=== PATIENT | female | born 1955 | race African-American/Black ===

== ENCOUNTER 2020-10-07 04:39 | Inpatient (IN) | payer OTHER, MEDICARE ==
[~2020-10-07] VITALS: Ht 165.1 cm; Wt 97.5 kg
[2020-10-07] MEDS ORDERED: SODIUM CHLORIDE 0.9% 1,000 ML IV ONE (05:30)
[2020-10-07 05:32] LABS: HEMATOCRIT. 43.5 % (36.0-48.0); HEMOGLOBIN. 14.2 g/dL (12.0-16.0); MEAN CORPUSCULAR HEMOGLOBIN 25.8 pg (28.0-32.0); MEAN PLATELET VOLUME 8.9 fl (7.4-10.4); PLATELET 271 x1000/uL (130-400); RED BLOOD CELL COUNT 5.51 mill/uL (4.2-5.4); RED CELL DISTRIBUTION WIDTH 16.5 % (11.6-14.6)
[2020-10-07 05:38] LABS: CHLORIDE 101 mEq/L (98-107)
[2020-10-07 06:15] LABS: BG BASE EXCESS 2.7 mmol/L (-2.0-2.0); BG CARBOXYHEMOGLOBIN 0.9 % (0.5-1.5); BG DEOXYHEMOGLOBIN 10.3 % (0.0-5.0); BG FRACTION INSPIRED OXYGEN 32; BG HCO3 ACT 26.7 mmol/L (22.0-26.0); BG METHEMOGLOBIN 0.1 % (0.0-1.5); BG OXYGEN SATURATION 89.6 % (92.0-98.5); BG OXYHEMOGLOBIN 88.7 % (94.0-97.0); BG PH 7.453 (7.350-7.450); BG PO2 56.3 mmHg (75.0-100.0); BG SAMPLE SITE RIGHT RADIAL; BG TOTAL HEMOGLOBIN 14.5 g/dL (12.0-18.0); BG VENT MODE NASAL CANNULA
[2020-10-07 06:19] LABS: PLATELET ESTIMATE NORMAL
[2020-10-07] MEDS ORDERED: PIPERACILLIN/TAZ 3.375G PREMIX 50 ML IV ONE (06:45)
[2020-10-07] MEDS ORDERED: VANCOMYCIN 1 G PREMIX 200 ML IV ONE (06:45)
[2020-10-07] MEDS ORDERED: DEXAMETHASONE 10 MG/ML VIAL IV ONE (06:45)
[2020-10-07 07:59] LABS: D-DIMER 4.55 mg/L FEU (<0.50)
[2020-10-07] MEDS ORDERED: MAGNESIUM/ALUMINUM HYDROXIDE/SIMETHICONE 30ML UDC PO PRN (08:45)
[2020-10-07] MEDS ORDERED: ENOXAPARIN 40MG/0.4ML SYR SUBCUT SCH ×2 (08:45→21:00)
[2020-10-07] MEDS ORDERED: ZOLPIDEM TARTRATE 5MG TABLET PO PRN (08:45)
[2020-10-07] MEDS ORDERED: NA PHOS,M-B/NA PHOS,DI-BA ENEMA 118ML PR PRN (08:45)
[2020-10-07] MEDS ORDERED: ACETAMINOPHEN 325MG TABLET PO PRN (08:45)
[2020-10-07] MEDS ORDERED: ONDANSETRON HCL 4MG/2ML INJ IV PRN (08:45)
[2020-10-07] MEDS ORDERED: DEXTROSE 50% WATER 50ML SYRINGE IV PRN (08:45)
[2020-10-07] MEDS ORDERED: ALBUTEROL 6.7GM HFA INHALER ORI PRN (08:45)
[2020-10-07] MEDS ORDERED: DOCUSATE SODIUM 100MG CAPSULE PO PRN (08:45)
[2020-10-07] MEDS ORDERED: TRAMADOL 50MG TABLET PO PRN (08:45)
[2020-10-07] MEDS ORDERED: NITROGLYCERIN 0.4MG TABLET SL SL PRN (08:45)
[2020-10-07] MEDS ORDERED: GUAIFENESIN 200MG/10ML SUGAR FREE UDC PO PRN (08:45)
[2020-10-07 09:00] VITALS: BP 121/79
[2020-10-07] MEDS ORDERED: ALBUTEROL 6.7GM HFA INHALER ORI SCH ×2 (09:00→10:00)
[2020-10-07] MEDS: BLOOD SUGAR DIAGNOSTIC STRIP TEST SCH ×4 (09:00→22:14)
[2020-10-07] MEDS ORDERED: CEFTRIAXONE 1 G PREMIX 50 ML IV SCH (09:00)
[2020-10-07 09:28] LABS: FOLIC ACID (FOLATE) SERUM 13.5 ng/mL (>5.38)
[2020-10-07] MEDS ORDERED: AZITHROMYCIN 500 MG in DEXT 5% WATER 250 ML IV SCH (10:00)
[2020-10-07] MEDS ORDERED: INSULIN GLARGINE UD 100 UNITS/ML SYR SUBCUT SCH ×2 (10:15→11:00)
[2020-10-07] MEDS ORDERED: CEFTRIAXONE 1,000 MG in DEXTROSE 5% WATER 50 ML IV SCH (10:15)
[2020-10-07] MEDS: ENOXAPARIN 30MG/0.3ML SYR SUBCUT SCH ×2 (10:18→22:13)
[2020-10-07] MEDS: FAMOTIDINE 20MG TABLET PO SCH ×2 (10:18→22:13)
[2020-10-07] MEDS: ZINC SULFATE 220 MG ( 50 ) CAPSULE PO SCH (10:18)
[2020-10-07] MEDS: ASPIRIN 81MG EC TABLET PO SCH (10:18)
[2020-10-07] MEDS: ASCORBIC ACID 500 MG TABLET PO SCH ×2 (10:19→22:13)
[2020-10-07 12:00] VITALS: BP 143/81
[2020-10-07] MEDS: CEFTRIAXONE 1,000 MG in DEXTROSE 5% WATER 50 ML IV SCH (12:05)
[2020-10-07] MEDS: AZITHROMYCIN 500 MG in DEXT 5% WATER 250 ML IV SCH (12:50)
[2020-10-07] MEDS: INSULIN LISPRO 100 UNITS/ML SUBCUT SCH ×3 (13:14→22:15)
[2020-10-07] MEDS ORDERED: INFLUENZA VACCINE 05/PF 0.5 ML VIAL IM ONE (13:30)
[2020-10-07 15:12] LABS: CREATINE KINASE 98 IU/L (26-192)
[2020-10-07 15:13] LABS: CREATINE KINASE MB FRACTION < 1.0 ng/mL (0.5-3.6)
[2020-10-07 16:00] VITALS: BP 138/89
[2020-10-07 20:00] VITALS: BP 159/90
[2020-10-07] MEDS: INSULIN GLARGINE UD 100 UNITS/ML SYR SUBCUT SCH (22:15)
[2020-10-07 23:53] LABS: CREATINE KINASE 102 IU/L (26-192)
[2020-10-07 23:54] LABS: CREATINE KINASE MB FRACTION < 1.0 ng/mL (0.5-3.6)
[2020-10-08] VITALS: BP 150/93
[2020-10-08 04:00] VITALS: BP 106/73
[2020-10-08] MEDS ORDERED: IPRATROPIUM/ALBUTEROL 0.5-3(2.5)MG/3ML NEB HHN SCH (06:00)
[2020-10-08] MEDS: BLOOD SUGAR DIAGNOSTIC STRIP TEST SCH ×4 (06:11→21:00)
[2020-10-08 08:00] VITALS: BP 131/74
[2020-10-08] MEDS: ZINC SULFATE 220 MG ( 50 ) CAPSULE PO SCH (08:29)
[2020-10-08] MEDS: FAMOTIDINE 20MG TABLET PO SCH ×2 (08:29→22:02)
[2020-10-08] MEDS: ENOXAPARIN 30MG/0.3ML SYR SUBCUT SCH ×2 (08:29→22:04)
[2020-10-08] MEDS: ASCORBIC ACID 500 MG TABLET PO SCH ×2 (08:29→22:02)
[2020-10-08] MEDS: ASPIRIN 81MG EC TABLET PO SCH (08:29)
[2020-10-08] MEDS: DEXAMETHASONE 10 MG/ML VIAL IV SCH (08:30)
[2020-10-08] MEDS: INSULIN LISPRO 100 UNITS/ML SUBCUT SCH ×4 (08:31→22:03)
[2020-10-08] MEDS: CEFTRIAXONE 1,000 MG in DEXTROSE 5% WATER 50 ML IV SCH (11:24)
[2020-10-08 12:00] VITALS: BP 144/80
[2020-10-08] MEDS: AZITHROMYCIN 500 MG in DEXT 5% WATER 250 ML IV SCH (13:04)
[2020-10-08 16:00] VITALS: BP 149/85
[2020-10-08] MEDS ORDERED: IOHEXOL-350 100 ML BOTTLE ONE (18:13)
[2020-10-08 20:00] VITALS: BP 138/86
[2020-10-08] MEDS: INSULIN GLARGINE UD 100 UNITS/ML SYR SUBCUT SCH (22:05)
[2020-10-09] VITALS (9 sets, daily range): BP systolic 136–154; BP diastolic 70–91
[2020-10-09 01:52] LABS: *AMPHETAMINES SCREEN URINE NEGATIVE (NEGATIVE); *BARBITURATES SCREEN URINE NEGATIVE (NEGATIVE); *BENZODIAZEPINES SCREEN URINE NEGATIVE (NEGATIVE); *COCAINE SCREEN URINE NEGATIVE (NEGATIVE)
[2020-10-09 01:53] LABS: CANNABINOID URINE SCREEN NEGATIVE (NEGATIVE); METHADONE URINE SCREEN NEGATIVE (NEGATIVE); OPIATES URINE SCREEN NEGATIVE (NEGATIVE); PHENCYCLIDINE URINE SCREEN NEGATIVE (NEGATIVE)
[2020-10-09] MEDS: BLOOD SUGAR DIAGNOSTIC STRIP TEST SCH ×4 (06:56→20:19)
[2020-10-09] MEDS: INSULIN LISPRO 100 UNITS/ML SUBCUT SCH ×4 (07:10→20:45)
[2020-10-09 07:26] LABS: HEMATOCRIT. 37.7 % (36.0-48.0); HEMOGLOBIN. 12.4 g/dL (12.0-16.0); MEAN CORPUSCULAR HEMOGLOBIN 26.3 pg (28.0-32.0); MEAN CORPUSCULAR VOLUME 79.6 fL (81.0-99.0); MEAN PLATELET VOLUME 8.3 fl (7.4-10.4); PLATELET 347 x1000/uL (130-400); RED BLOOD CELL COUNT 4.73 mill/uL (4.2-5.4)
[2020-10-09 07:28] LABS: CHLORIDE 106 mEq/L (98-107)
[2020-10-09] MEDS ORDERED: BUTALBITAL/ACETAMINOPHEN/CAFFEINE 50/325/40MG TABLET PO PRN (09:15)
[2020-10-09] MEDS: DEXAMETHASONE 10 MG/ML VIAL IV SCH (09:26)
[2020-10-09] MEDS: FAMOTIDINE 20MG TABLET PO SCH ×2 (09:26→20:19)
[2020-10-09] MEDS: ENOXAPARIN 30MG/0.3ML SYR SUBCUT SCH ×2 (09:26→20:19)
[2020-10-09] MEDS: ZINC SULFATE 220 MG ( 50 ) CAPSULE PO SCH (09:26)
[2020-10-09] MEDS: ASCORBIC ACID 500 MG TABLET PO SCH ×2 (09:26→20:19)
[2020-10-09] MEDS: ASPIRIN 81MG EC TABLET PO SCH (09:26)
[2020-10-09] MEDS ORDERED: IPRATROPIUM/ALBUTEROL 0.5-3(2.5)MG/3ML NEB HHN PRN (12:00)
[2020-10-09] MEDS: CEFTRIAXONE 1,000 MG in DEXTROSE 5% WATER 50 ML IV SCH (12:20)
[2020-10-09 12:27] LABS: BG BASE EXCESS 1.2 mmol/L (-2.0-2.0); BG CARBOXYHEMOGLOBIN 1.8 % (0.5-1.5); BG DEOXYHEMOGLOBIN 1.9 % (0.0-5.0); BG FRACTION INSPIRED OXYGEN 92.6; BG HCO3 ACT 23.6 mmol/L (22.0-26.0); BG METHEMOGLOBIN 0.2 % (0.0-1.5); BG OXYGEN SATURATION 98.1 % (92.0-98.5); BG OXYHEMOGLOBIN 96.1 % (94.0-97.0); BG PCO2 31.8 mmHg (35.0-45.0); BG PH 7.488 (7.350-7.450); BG PO2 99.3 mmHg (75.0-100.0); BG SAMPLE SITE RIGHT BRACHIAL; BG VENT MODE HIGH FLOW
[2020-10-09] MEDS: AZITHROMYCIN 500 MG in DEXT 5% WATER 250 ML IV SCH (13:18)
[2020-10-09 14:38] LABS: PLATELET ESTIMATE NORMAL
[2020-10-09] MEDS: IPRATROPIUM/ALBUTEROL 0.5-3(2.5)MG/3ML NEB HHN SCH ×2 (18:35→20:01)
[2020-10-09] MEDS: INSULIN GLARGINE UD 100 UNITS/ML SYR SUBCUT SCH (21:47)
[2020-10-10] VITALS (12 sets, daily range): BP systolic 136–163; BP diastolic 72–89
[2020-10-10] MEDS: IPRATROPIUM/ALBUTEROL 0.5-3(2.5)MG/3ML NEB HHN SCH ×3 (01:28→20:12)
[2020-10-10 06:41] LABS: HEMATOCRIT. 35.3 % (36.0-48.0); HEMOGLOBIN. 11.7 g/dL (12.0-16.0); MEAN CORPUSCULAR HEMOGLOBIN 26.2 pg (28.0-32.0); MEAN CORPUSCULAR VOLUME 79.2 fL (81.0-99.0); PLATELET 329 x1000/uL (130-400); RED BLOOD CELL COUNT 4.46 mill/uL (4.2-5.4); RED CELL DISTRIBUTION WIDTH 17.4 % (11.6-14.6)
[2020-10-10] MEDS: BLOOD SUGAR DIAGNOSTIC STRIP TEST SCH ×4 (07:30→21:00)
[2020-10-10] MEDS: INSULIN LISPRO 100 UNITS/ML SUBCUT SCH ×4 (08:00→21:00)
[2020-10-10] MEDS: FAMOTIDINE 20MG TABLET PO SCH ×2 (08:45→21:04)
[2020-10-10] MEDS: ASCORBIC ACID 500 MG TABLET PO SCH ×2 (08:45→21:04)
[2020-10-10] MEDS: ASPIRIN 81MG EC TABLET PO SCH (08:45)
[2020-10-10] MEDS: ZINC SULFATE 220 MG ( 50 ) CAPSULE PO SCH (08:45)
[2020-10-10] MEDS: ENOXAPARIN 30MG/0.3ML SYR SUBCUT SCH ×2 (08:46→21:04)
[2020-10-10] MEDS: ACETAMINOPHEN 325MG TABLET PO PRN ×2 (09:02→17:00)
[2020-10-10] MEDS: CEFTRIAXONE 1,000 MG in DEXTROSE 5% WATER 50 ML IV SCH (10:21)
[2020-10-10] MEDS: AZITHROMYCIN 500 MG in DEXT 5% WATER 250 ML IV SCH (11:23)
[2020-10-10 13:31] LABS: PLATELET ESTIMATE NORMAL
[2020-10-10] MEDS: CLONIDINE 0.1MG TABLET PO PRN (16:55)
[2020-10-10] MEDS: INSULIN GLARGINE UD 100 UNITS/ML SYR SUBCUT SCH (21:19)
[2020-10-11] VITALS (12 sets, daily range): BP systolic 126–192; BP diastolic 60–91
[2020-10-11] MEDS ORDERED: METF-414 MT (01:24)
[2020-10-11] MEDS ORDERED: AMLO5TAB88 MT (01:24)
[2020-10-11] MEDS: IPRATROPIUM/ALBUTEROL 0.5-3(2.5)MG/3ML NEB HHN SCH ×4 (01:52→21:30)
[2020-10-11] MEDS: CLONIDINE 0.1MG TABLET PO PRN (02:41)
[2020-10-11 06:17] LABS: HEMATOCRIT. 37.4 % (36.0-48.0); HEMOGLOBIN. 12.5 g/dL (12.0-16.0); MEAN CORPUSCULAR HEMOGLOBIN 26.2 pg (28.0-32.0); MEAN CORPUSCULAR VOLUME 78.5 fL (81.0-99.0); MEAN PLATELET VOLUME 7.9 fl (7.4-10.4); PLATELET 337 x1000/uL (130-400); RED BLOOD CELL COUNT 4.77 mill/uL (4.2-5.4); RED CELL DISTRIBUTION WIDTH 16.5 % (11.6-14.6)
[2020-10-11 06:37] LABS: CHLORIDE 103 mEq/L (98-107)
[2020-10-11] MEDS: INSULIN LISPRO 100 UNITS/ML SUBCUT SCH ×4 (08:00→22:19)
[2020-10-11] MEDS: ZINC SULFATE 220 MG ( 50 ) CAPSULE PO SCH (08:03)
[2020-10-11] MEDS: ASCORBIC ACID 500 MG TABLET PO SCH ×2 (08:03→22:21)
[2020-10-11] MEDS: FAMOTIDINE 20MG TABLET PO SCH ×2 (08:03→22:20)
[2020-10-11] MEDS: ASPIRIN 81MG EC TABLET PO SCH (08:03)
[2020-10-11] MEDS: ENOXAPARIN 30MG/0.3ML SYR SUBCUT SCH ×2 (08:04→22:20)
[2020-10-11] MEDS: BLOOD SUGAR DIAGNOSTIC STRIP TEST SCH ×4 (08:04→22:20)
[2020-10-11] MEDS: AMLODIPINE 10MG TABLET PO SCH (10:04)
[2020-10-11] MEDS: CEFTRIAXONE 1,000 MG in DEXTROSE 5% WATER 50 ML IV SCH (10:38)
[2020-10-11] MEDS: AZITHROMYCIN 500 MG in DEXT 5% WATER 250 ML IV SCH (11:45)
[2020-10-11] MEDS: INSULIN GLARGINE UD 100 UNITS/ML SYR SUBCUT SCH (22:20)
[2020-10-12] VITALS (11 sets, daily range): BP systolic 112–168; BP diastolic 58–94
[2020-10-12] MEDS: IPRATROPIUM/ALBUTEROL 0.5-3(2.5)MG/3ML NEB HHN SCH ×6 (01:16→21:15)
[2020-10-12] MEDS: BLOOD SUGAR DIAGNOSTIC STRIP TEST SCH ×4 (06:39→21:00)
[2020-10-12] MEDS: INSULIN LISPRO 100 UNITS/ML SUBCUT SCH ×4 (08:00→22:33)
[2020-10-12] MEDS: AMLODIPINE 10MG TABLET PO SCH (08:39)
[2020-10-12] MEDS: FAMOTIDINE 20MG TABLET PO SCH ×2 (08:39→22:29)
[2020-10-12] MEDS: ASPIRIN 81MG EC TABLET PO SCH (08:39)
[2020-10-12] MEDS: ZINC SULFATE 220 MG ( 50 ) CAPSULE PO SCH (08:39)
[2020-10-12] MEDS: ASCORBIC ACID 500 MG TABLET PO SCH ×2 (08:39→22:29)
[2020-10-12] MEDS: ENOXAPARIN 30MG/0.3ML SYR SUBCUT SCH ×2 (08:40→22:29)
[2020-10-12 08:41] LABS: BG BASE EXCESS 2.6 mmol/L (-2.0-2.0); BG CARBOXYHEMOGLOBIN 0.8 % (0.5-1.5); BG DEOXYHEMOGLOBIN 13.3 % (0.0-5.0); BG FRACTION INSPIRED OXYGEN 21; BG HCO3 ACT 25.9 mmol/L (22.0-26.0); BG OXYGEN SATURATION 86.6 % (92.0-98.5); BG OXYHEMOGLOBIN 85.9 % (94.0-97.0); BG PCO2 35.8 mmHg (35.0-45.0); BG PH 7.477 (7.350-7.450); BG PO2 49.2 mmHg (75.0-100.0); BG SAMPLE SITE RIGHT RADIAL; BG TOTAL HEMOGLOBIN 13.2 g/dL (12.0-18.0); BG VENT MODE ROOM AIR
[2020-10-12] MEDS: CEFTRIAXONE 1,000 MG in DEXTROSE 5% WATER 50 ML IV SCH (11:13)
[2020-10-12 11:46] LABS: PLATELET ESTIMATE NORMAL
[2020-10-12] MEDS: INSULIN GLARGINE UD 100 UNITS/ML SYR SUBCUT SCH (22:32)
[2020-10-13] VITALS (7 sets, daily range): BP systolic 103–150; BP diastolic 53–78
[2020-10-13] MEDS: IPRATROPIUM/ALBUTEROL 0.5-3(2.5)MG/3ML NEB HHN SCH ×6 (00:55→20:28)
[2020-10-13 06:46] LABS: HEMATOCRIT. 35.6 % (36.0-48.0); HEMOGLOBIN. 11.8 g/dL (12.0-16.0); MEAN CORPUSCULAR HEMOGLOBIN 26.4 pg (28.0-32.0); MEAN CORPUSCULAR VOLUME 79.4 fL (81.0-99.0); MEAN PLATELET VOLUME 7.7 fl (7.4-10.4); PLATELET 322 x1000/uL (130-400); RED BLOOD CELL COUNT 4.48 mill/uL (4.2-5.4); RED CELL DISTRIBUTION WIDTH 17.1 % (11.6-14.6)
[2020-10-13] MEDS: BLOOD SUGAR DIAGNOSTIC STRIP TEST SCH ×4 (07:30→20:47)
[2020-10-13 07:47] LABS: CHLORIDE 106 mEq/L (98-107)
[2020-10-13] MEDS: INSULIN LISPRO 100 UNITS/ML SUBCUT SCH ×4 (08:00→20:59)
[2020-10-13] MEDS: AMLODIPINE 10MG TABLET PO SCH (09:59)
[2020-10-13] MEDS: ENOXAPARIN 30MG/0.3ML SYR SUBCUT SCH ×2 (10:01→20:47)
[2020-10-13] MEDS: ASCORBIC ACID 500 MG TABLET PO SCH ×2 (10:01→20:46)
[2020-10-13] MEDS: ZINC SULFATE 220 MG ( 50 ) CAPSULE PO SCH (10:01)
[2020-10-13] MEDS: FAMOTIDINE 20MG TABLET PO SCH ×2 (10:01→20:46)
[2020-10-13] MEDS: ASPIRIN 81MG EC TABLET PO SCH (10:01)
[2020-10-13] MEDS: CEFTRIAXONE 1,000 MG in DEXTROSE 5% WATER 50 ML IV SCH (11:13)
[2020-10-13] MEDS: CLONIDINE 0.1MG TABLET PO PRN (17:48)
[2020-10-13 19:50] LABS: PLATELET ESTIMATE NORMAL
[2020-10-13] MEDS: INSULIN GLARGINE UD 100 UNITS/ML SYR SUBCUT SCH (22:52)
[2020-10-14] VITALS: BP 128/74
[2020-10-14] MEDS: IPRATROPIUM/ALBUTEROL 0.5-3(2.5)MG/3ML NEB HHN SCH ×5 (00:09→20:28)
[2020-10-14 04:00] VITALS: BP 110/56
[2020-10-14] MEDS: BLOOD SUGAR DIAGNOSTIC STRIP TEST SCH ×4 (07:40→20:41)
[2020-10-14] MEDS: INSULIN LISPRO 100 UNITS/ML SUBCUT SCH ×4 (07:40→20:41)
[2020-10-14 08:00] VITALS: BP 112/36
[2020-10-14] MEDS: ZINC SULFATE 220 MG ( 50 ) CAPSULE PO SCH (08:52)
[2020-10-14] MEDS: ASPIRIN 81MG EC TABLET PO SCH (08:52)
[2020-10-14] MEDS: FAMOTIDINE 20MG TABLET PO SCH ×2 (08:52→20:33)
[2020-10-14] MEDS: ASCORBIC ACID 500 MG TABLET PO SCH ×2 (08:52→20:33)
[2020-10-14] MEDS: AMLODIPINE 10MG TABLET PO SCH (08:52)
[2020-10-14] MEDS: ENOXAPARIN 30MG/0.3ML SYR SUBCUT SCH ×2 (08:52→20:33)
[2020-10-14 17:05] VITALS: BP 159/71
[2020-10-14 20:00] VITALS: BP 136/70
[2020-10-14] MEDS: INSULIN GLARGINE UD 100 UNITS/ML SYR SUBCUT SCH (21:42)
[2020-10-15] VITALS: BP 146/71
[2020-10-15] MEDS: IPRATROPIUM/ALBUTEROL 0.5-3(2.5)MG/3ML NEB HHN SCH ×6 (00:15→20:38)
[2020-10-15 04:00] VITALS: BP 126/57
[2020-10-15] MEDS: BLOOD SUGAR DIAGNOSTIC STRIP TEST SCH ×4 (07:30→20:33)
[2020-10-15 08:00] VITALS: BP 158/75
[2020-10-15] MEDS: INSULIN LISPRO 100 UNITS/ML SUBCUT SCH ×4 (08:00→20:55)
[2020-10-15] MEDS: FAMOTIDINE 20MG TABLET PO SCH ×2 (08:58→20:32)
[2020-10-15] MEDS: ZINC SULFATE 220 MG ( 50 ) CAPSULE PO SCH (08:58)
[2020-10-15] MEDS: ASPIRIN 81MG EC TABLET PO SCH (08:58)
[2020-10-15] MEDS: ASCORBIC ACID 500 MG TABLET PO SCH ×2 (08:59→20:32)
[2020-10-15] MEDS: AMLODIPINE 10MG TABLET PO SCH (08:59)
[2020-10-15] MEDS: ENOXAPARIN 30MG/0.3ML SYR SUBCUT SCH ×2 (09:00→20:33)
[2020-10-15 16:00] VITALS: BP 125/63
[2020-10-15] MEDS: ACETAMINOPHEN 325MG TABLET PO PRN (17:36)
[2020-10-15 20:00] VITALS: BP 136/73
[2020-10-15] MEDS: INSULIN GLARGINE UD 100 UNITS/ML SYR SUBCUT SCH (21:13)
[2020-10-15 23:30] VITALS: BP 125/54
[2020-10-16] MEDS: IPRATROPIUM/ALBUTEROL 0.5-3(2.5)MG/3ML NEB HHN SCH ×4 (00:23→11:42)
[2020-10-16 04:00] VITALS: BP 142/80
[2020-10-16 05:30] VITALS: BP 142/80
[2020-10-16 06:38] LABS: HEMATOCRIT. 35.3 % (36.0-48.0); HEMOGLOBIN. 11.7 g/dL (12.0-16.0); MEAN CORPUSCULAR HEMOGLOBIN 26.3 pg (28.0-32.0); MEAN CORPUSCULAR VOLUME 79.3 fL (81.0-99.0); PLATELET 357 x1000/uL (130-400); RED BLOOD CELL COUNT 4.45 mill/uL (4.2-5.4); RED CELL DISTRIBUTION WIDTH 16.8 % (11.6-14.6)
[2020-10-16] MEDS: BLOOD SUGAR DIAGNOSTIC STRIP TEST SCH (07:30)
[2020-10-16] MEDS: INSULIN LISPRO 100 UNITS/ML SUBCUT SCH (08:00)
[2020-10-16 08:06] VITALS: BP 170/63
[2020-10-16] MEDS: ENOXAPARIN 30MG/0.3ML SYR SUBCUT SCH (08:59)
[2020-10-16] MEDS: ASPIRIN 81MG EC TABLET PO SCH (09:00)
[2020-10-16] MEDS: ZINC SULFATE 220 MG ( 50 ) CAPSULE PO SCH (09:00)
[2020-10-16] MEDS: FAMOTIDINE 20MG TABLET PO SCH (09:00)
[2020-10-16] MEDS: ASCORBIC ACID 500 MG TABLET PO SCH (09:03)
[2020-10-16] MEDS: AMLODIPINE 10MG TABLET PO SCH (09:03)
[2020-10-16 10:21] VITALS: BP 137/64
[2020-10-16 12:00] VITALS: BP 143/68
[2020-10-16 14:43] LABS: PLATELET ESTIMATE NORMAL
== END 2020-10-16 12:38 | disposition home or self-care (01) | DRG 871 ==
LOC: ER 04:39 → 7EST 07:31 → EDBEDREQ 07:35 → EDBEDREQTM 07:35 → ENRESERV 07:51 → SUPCPDRO 08:40 → 8WST 10-08 00:51 → 7EST 10-08 10:40 → 5EST 10-09 11:15
PROVIDERS: ADMIT Internal Medicine; ATTEND Internal Medicine
PROC: 5A0935A Assistance with Respiratory Ventilation, Less than 24 Consecutive Hours, High Flow/Velocity Cannula (ICD-10-PCS; principal; 2020-10-07)
PROC: 5A0935A Assistance with Respiratory Ventilation, Less than 24 Consecutive Hours, High Flow/Velocity Cannula (ICD-10-PCS; 2020-10-08)
PROC: 5A0935A Assistance with Respiratory Ventilation, Less than 24 Consecutive Hours, High Flow/Velocity Cannula (ICD-10-PCS; 2020-10-09)
DX: A41.89 Other specified sepsis (principal); J18.9 Pneumonia, unspecified organism; J96.01 Acute respiratory failure with hypoxia; E44.0 Moderate protein-calorie malnutrition; E66.9 Obesity, unspecified; I10 Essential (primary) hypertension; E11.9 Type 2 diabetes mellitus without complications; Z20.828 Contact with and (suspected) exposure to other viral communicable diseases; T38.0X5A Adverse effect of glucocorticoids and synthetic analogues, initial encounter; I27.20 Pulmonary hypertension, unspecified; Y92.89 Other specified places as the place of occurrence of the external cause; Z68.35 Body mass index [BMI] 35.0-35.9, adult; Z79.4 Long term (current) use of insulin; Z88.0 Allergy status to penicillin; Z79.899 Other long term (current) drug therapy; Z79.82 Long term (current) use of aspirin; Z79.51 Long term (current) use of inhaled steroids; Z79.1 Long term (current) use of non-steroidal anti-inflammatories (NSAID)
CPT/HCPCS: 36415; 36600; 71045; 71275; 80048; 80053; 80061; 80305; 82375; 82550; 82553; 82607; 82728; 82746; 82805; 82962; 83036; 83540; 83550; 83605; 83615; 83880; 84145; 84484; 85025; 85379; 85384; 86140; 87070; 87635; 90686; 93005; 93306; 93970; 94640; 94667; 97116; 97161; 97164; 97166; 97530; 97535; 99291; J0456; J0696; J1100; J1650; J1815; J2543; J3370; J7030; J7060; Q9967; U0003

== ENCOUNTER 2020-10-29 17:44 | Inpatient (IN) | payer OTHER, MEDICARE ==
[~2020-10-29] VITALS: Ht 162.6 cm; Wt 69.9 kg
[~2020-10-29 17:44] MED LIST: AMLO5TAB88 MT; METF-414 MT
[2020-10-29] MEDS ORDERED: LEVOFLOXACIN 750MG PREMIX 150 ML IV ONE (18:15)
[2020-10-29] MEDS ORDERED: AZITHROMYCIN 500 MG in DEXT 5% WATER 250 ML IV ONE (18:15)
[2020-10-29] MEDS ORDERED: SODIUM CHLORIDE 0.9% 1000ML BAG (SEPSIS BOLUS) IV ONE (18:15)
[2020-10-29 20:00] LABS: BASOPHILS % 0.8 % (0.0-2.0); EOSINOPHILS % 5.6 % (0.0-5.0); HEMATOCRIT. 34.8 % (36.0-48.0); HEMOGLOBIN. 11.9 g/dL (12.0-16.0); LYMPHOCYTES % 13.3 % (20.0-50.0); MEAN CORPUSCULAR HEMOGLOBIN 26.1 pg (28.0-32.0); MEAN PLATELET VOLUME 8.3 fl (7.4-10.4); MONOCYTES % 7.2 % (2.0-8.0); NEUTROPHILS % 73.1 % (40.0-76.0); PLATELET 210 x1000/uL (130-400); RED BLOOD CELL COUNT 4.58 mill/uL (4.2-5.4); RED CELL DISTRIBUTION WIDTH 16.7 % (11.6-14.6)
[2020-10-29 20:08] LABS: CHLORIDE 106 mEq/L (98-107); INR 1.2; PROTHROMBIN TIME 12.4 sec (9.6-11.0)
[2020-10-29] MEDS ORDERED: IOHEXOL-350 100 ML BOTTLE ONE (23:16)
[2020-10-30 01:03] LABS: CLARITY URINE CLEAR (CLEAR); COLOR URINE YELLOW (YELLOW); KETONES URINE TRACE (NEGATIVE); LEUKOCYTE ESTERASE URINE NEGATIVE (NEGATIVE); NITRITE URINE NEGATIVE (NEGATIVE); OCCULT BLOOD URINE NEGATIVE (NEGATIVE); PROTEIN URINE 2+ (NEGATIVE); SPECIFIC GRAVITY URINE 1.043 (1.005-1.030)
[2020-10-30] MEDS ORDERED: LEVOFLOXACIN 500MG PREMIX 100 ML IV SCH (01:45)
[2020-10-30] MEDS ORDERED: MAGNESIUM/ALUMINUM HYDROXIDE/SIMETHICONE 30ML UDC PO PRN (01:45)
[2020-10-30] MEDS ORDERED: GUAIFENESIN 200MG/10ML SUGAR FREE UDC PO PRN (01:45)
[2020-10-30] MEDS ORDERED: IPRATROPIUM/ALBUTEROL 0.5-3(2.5)MG/3ML NEB NEB PRN (01:45)
[2020-10-30] MEDS ORDERED: DOCUSATE SODIUM 100MG CAPSULE PO PRN (01:45)
[2020-10-30] MEDS ORDERED: CLONIDINE 0.1MG TABLET PO PRN (01:45)
[2020-10-30] MEDS ORDERED: ONDANSETRON HCL 4MG/2ML INJ IV PRN (01:45)
[2020-10-30] MEDS: ENOXAPARIN 40MG/0.4ML SYR SUBCUT SCH (09:00)
[2020-10-30] MEDS: AMLODIPINE 10MG TABLET PO SCH (09:00)
[2020-10-30] MEDS: ACETAMINOPHEN 325MG TABLET PO PRN ×2 (16:17→19:02)
[2020-10-30] MEDS: BLOOD SUGAR DIAGNOSTIC STRIP TEST SCH ×2 (17:00→21:00)
[2020-10-30] MEDS ORDERED: ALBUTEROL 6.7GM HFA INHALER ORI PRN (17:00)
[2020-10-30] MEDS ORDERED: DEXAMETHASONE 4MG/ML 1ML VIAL IV SCH (18:00)
[2020-10-30] MEDS: LEVOFLOXACIN 250MG PREMIX 50 ML IV SCH (20:44)
[2020-10-31 04:25] LABS: BASOPHILS % 0.5 % (0.0-2.0); EOSINOPHILS % 0.9 % (0.0-5.0); HEMATOCRIT. 36.8 % (36.0-48.0); HEMOGLOBIN. 12.3 g/dL (12.0-16.0); LYMPHOCYTES % 12.5 % (20.0-50.0); MEAN CORPUSCULAR HEMOGLOBIN 25.8 pg (28.0-32.0); MEAN CORPUSCULAR VOLUME 77.3 fL (81.0-99.0); MEAN PLATELET VOLUME 8.2 fl (7.4-10.4); MONOCYTES % 3.5 % (2.0-8.0); NEUTROPHILS % 82.6 % (40.0-76.0); PLATELET 210 x1000/uL (130-400); RED BLOOD CELL COUNT 4.76 mill/uL (4.2-5.4); RED CELL DISTRIBUTION WIDTH 17.2 % (11.6-14.6)
[2020-10-31 04:38] LABS: CHLORIDE 113 mEq/L (98-107)
[2020-10-31] MEDS: BLOOD SUGAR DIAGNOSTIC STRIP TEST SCH ×4 (06:20→21:00)
[2020-10-31] MEDS: ACETAMINOPHEN 325MG TABLET PO PRN ×2 (11:28→21:41)
[2020-10-31 12:30] VITALS: BP 125/63
[2020-10-31] MEDS: AMLODIPINE 10MG TABLET PO SCH (13:48)
[2020-10-31] MEDS: ENOXAPARIN 40MG/0.4ML SYR SUBCUT SCH (13:49)
[2020-10-31] MEDS: DEXAMETHASONE 10 MG/ML VIAL IV SCH (13:50)
[2020-10-31 16:00] VITALS: BP 124/79
[2020-10-31 16:49] VITALS: BP 125/63
[2020-10-31] MEDS ORDERED: ATOR10TA69 MT (17:30)
[2020-10-31 20:00] VITALS: BP 147/82
[2020-10-31] MEDS ORDERED: DEXTROSE 50% WATER 50ML SYRINGE IV PRN (21:00)
[2020-10-31] MEDS: LEVOFLOXACIN 250MG PREMIX 50 ML IV SCH (21:36)
[2020-10-31] MEDS: INSULIN LISPRO 100 UNITS/ML SUBCUT SCH (21:40)
[2020-11-01] VITALS: BP 106/67
[2020-11-01 04:00] VITALS: BP 130/64
[2020-11-01] MEDS: BLOOD SUGAR DIAGNOSTIC STRIP TEST SCH ×4 (07:40→21:01)
[2020-11-01 10:00] VITALS: BP 120/70
[2020-11-01] MEDS: ENOXAPARIN 40MG/0.4ML SYR SUBCUT SCH (10:53)
[2020-11-01] MEDS: DEXAMETHASONE 10 MG/ML VIAL IV SCH (10:53)
[2020-11-01] MEDS: AMLODIPINE 10MG TABLET PO SCH (10:53)
[2020-11-01] MEDS: INSULIN LISPRO 100 UNITS/ML SUBCUT SCH ×4 (10:54→21:20)
[2020-11-01] MEDS: ACETAMINOPHEN 325MG TABLET PO PRN (10:55)
[2020-11-01 16:00] VITALS: BP 127/70
[2020-11-01 20:00] VITALS: BP 116/72
[2020-11-01] MEDS: LEVOFLOXACIN 250MG PREMIX 50 ML IV SCH (21:20)
[2020-11-02] VITALS: BP 139/86
[2020-11-02 04:00] VITALS: BP 172/90
[2020-11-02] MEDS: ACETAMINOPHEN 325MG TABLET PO PRN ×3 (04:55→16:17)
[2020-11-02] MEDS: BLOOD SUGAR DIAGNOSTIC STRIP TEST SCH ×4 (07:09→21:00)
[2020-11-02] MEDS: INSULIN LISPRO 100 UNITS/ML SUBCUT SCH ×4 (07:30→21:00)
[2020-11-02 08:00] VITALS: BP 120/75
[2020-11-02] MEDS: DEXAMETHASONE 10 MG/ML VIAL IV SCH (10:28)
[2020-11-02] MEDS: AMLODIPINE 10MG TABLET PO SCH (10:28)
[2020-11-02] MEDS: ENOXAPARIN 40MG/0.4ML SYR SUBCUT SCH (10:31)
[2020-11-02 12:00] VITALS: BP 159/92
[2020-11-02 16:00] VITALS: BP 134/57
[2020-11-02 20:00] VITALS: BP 154/72
[2020-11-02] MEDS: LEVOFLOXACIN 250MG PREMIX 50 ML IV SCH (22:59)
[2020-11-03] VITALS: BP 161/68
[2020-11-03 04:15] VITALS: BP 155/81
[2020-11-03] MEDS: INSULIN LISPRO 100 UNITS/ML SUBCUT SCH ×4 (07:41→20:36)
[2020-11-03] MEDS: BLOOD SUGAR DIAGNOSTIC STRIP TEST SCH ×4 (07:41→20:15)
[2020-11-03 08:00] VITALS: BP 158/95
[2020-11-03] MEDS: ENOXAPARIN 40MG/0.4ML SYR SUBCUT SCH (09:07)
[2020-11-03] MEDS: DEXAMETHASONE 10 MG/ML VIAL IV SCH (09:07)
[2020-11-03] MEDS: AMLODIPINE 10MG TABLET PO SCH (09:08)
[2020-11-03 12:00] VITALS: BP 128/75
[2020-11-03 16:00] VITALS: BP 132/69
[2020-11-03 20:00] VITALS: BP 137/85
[2020-11-04] VITALS: BP 173/96
[2020-11-04] MEDS: METOPROLOL TARTRATE 5MG/5ML VIAL IV PRN ×2 (01:05→21:22)
[2020-11-04 04:00] VITALS: BP 159/90
[2020-11-04] MEDS: ACETAMINOPHEN 325MG TABLET PO PRN ×4 (06:06→23:51)
[2020-11-04] MEDS: BLOOD SUGAR DIAGNOSTIC STRIP TEST SCH ×4 (07:00→21:17)
[2020-11-04 08:00] VITALS: BP 163/92
[2020-11-04] MEDS: INSULIN LISPRO 100 UNITS/ML SUBCUT SCH ×4 (08:10→21:38)
[2020-11-04] MEDS: DEXAMETHASONE 10 MG/ML VIAL IV SCH (10:41)
[2020-11-04] MEDS: AMLODIPINE 10MG TABLET PO SCH (10:41)
[2020-11-04] MEDS: ENOXAPARIN 40MG/0.4ML SYR SUBCUT SCH (10:41)
[2020-11-04 20:53] VITALS: BP 113/62
[2020-11-05 00:16] VITALS: BP 90/56
[2020-11-05 04:00] VITALS: BP 100/60
[2020-11-05] MEDS: BLOOD SUGAR DIAGNOSTIC STRIP TEST SCH ×3 (06:24→18:33)
[2020-11-05] MEDS: AMLODIPINE 10MG TABLET PO SCH (09:32)
[2020-11-05] MEDS: DEXAMETHASONE 10 MG/ML VIAL IV SCH (09:33)
[2020-11-05] MEDS: ENOXAPARIN 40MG/0.4ML SYR SUBCUT SCH (09:34)
[2020-11-05] MEDS: INSULIN LISPRO 100 UNITS/ML SUBCUT SCH ×3 (09:39→18:10)
[2020-11-05] MEDS ORDERED: DEXT 5%/0.45% NACL 1000ML 1,000 ML IV SCH (10:15)
[2020-11-05 12:35] LABS: BASOPHILS % 0.5 % (0.0-2.0); EOSINOPHILS % 1.5 % (0.0-5.0); HEMATOCRIT. 35.4 % (36.0-48.0); HEMOGLOBIN. 11.7 g/dL (12.0-16.0); LYMPHOCYTES % 13.8 % (20.0-50.0); MEAN CORPUSCULAR HEMOGLOBIN 25.3 pg (28.0-32.0); MEAN CORPUSCULAR VOLUME 76.7 fL (81.0-99.0); MEAN PLATELET VOLUME 9.3 fl (7.4-10.4); MONOCYTES % 1.9 % (2.0-8.0); NEUTROPHILS % 82.3 % (40.0-76.0); PLATELET 76 x1000/uL (130-400); RED BLOOD CELL COUNT 4.62 mill/uL (4.2-5.4); RED CELL DISTRIBUTION WIDTH 17.8 % (11.6-14.6)
== END 2020-11-05 20:10 | disposition expired | DRG 871 ==
LOC: ER 17:44 → EDBEDREQ 18:25 → MICUSO 10-30 00:24 → EDBEDREQDT 10-30 00:27 → EDBEDREQ 10-30 00:27 → EDBEDREQSVC 10-30 00:27 → EDBEDREQTM 10-30 00:27 → 7WST 10-31 10:20
PROVIDERS: ADMIT Hospitalist; ATTEND Hospitalist
PROC: 0BH17EZ Insertion of Endotracheal Airway into Trachea, Via Natural or Artificial Opening (ICD-10-PCS; principal; 2020-11-05)
PROC: 5A12012 Performance of Cardiac Output, Single, Manual (ICD-10-PCS; 2020-11-05)
PROC: 06HY33Z Insertion of Infusion Device into Lower Vein, Percutaneous Approach (ICD-10-PCS; 2020-11-05)
PROC: 5A2204Z Restoration of Cardiac Rhythm, Single (ICD-10-PCS; 2020-11-05)
DX: A41.89 Other specified sepsis (principal); U07.1 COVID-19; E43 Unspecified severe protein-calorie malnutrition; J12.89 Other viral pneumonia; J96.00 Acute respiratory failure, unspecified whether with hypoxia or hypercapnia; G93.41 Metabolic encephalopathy; I49.01 Ventricular fibrillation; R74.01 Elevation of levels of liver transaminase levels; E11.9 Type 2 diabetes mellitus without complications; I46.9 Cardiac arrest, cause unspecified; I10 Essential (primary) hypertension; Z87.01 Personal history of pneumonia (recurrent); Z68.26 Body mass index [BMI] 26.0-26.9, adult; Z88.0 Allergy status to penicillin
CPT/HCPCS: 36415; 71045; 71275; 80053; 81003; 82962; 83605; 84145; 84484; 85025; 87635; 93005; 99285; J0456; J1100; J1650; J1815; J1956; J3490; J7030; J7040; J7060; Q9967